=== PATIENT | female | born 1945 | race Caucasian/White ===

== ENCOUNTER 2021-11-13 18:16 | Emergency (ER) | payer MEDICARE, OTHER ==
[~2021-11-13] VITALS: Ht 162.6 cm; Wt 81.7 kg
[2021-11-13 19:11] LABS: ABSOLUTE LYMPHOCYTES 2.1 thou/uL (0.8-5.3); ABSOLUTE MONOCYTES 1.1 thou/uL (0.0-1.2); ABSOLUTE NEUTROPHILS 5.2 thou/uL (1.6-8.1); BASOPHILS 0.3 %; EOSINOPHILS 0.3 %; HEMATOCRIT 39.7 % (37.0-47.0); LYMPHOCYTES 24.9 %; MCH 28.6 pg (26.0-34.0); MCHC 32.8 g/dL (28.0-37.0); MCV 87.4 fL (80.0-100.0); MPV 8.8 fl. (7.2-11.1); NUCLEATED RBCS 0 /100WBC; PLATELET COUNT* 245 thou/uL (150-400); POLYS 61.5 %; RBC 4.54 mil/uL (4.20-5.00); RDW-CV 14.1 % (10.5-14.5); WBC 8.5 thou/uL (4.0-11.0)
[2021-11-13 19:28] LABS: CALCIUM 8.1 mg/dL (8.5-10.1); CREATININE 1.2 mg/dL (0.6-1.3); POTASSIUM 3.1 mmol/L (3.5-5.1)
[2021-11-13 19:32] LABS: ALBUMIN 2.4 g/dL (3.4-5.0); TOTAL BILIRUBIN 0.6 mg/dL (<0.1-1.0); TOTAL PROTEIN 6.3 g/dL (6.4-8.2)
[2021-11-13] MEDS ORDERED: ONDANSETRON ODT4 MG PO (21:36)
[2021-11-13] MEDS ORDERED: AMOXICILLIN 50500 MG PO (21:36)
[2021-11-13] MEDS ORDERED: LOPERAMIDE 2 MG2 M1 PO (21:36)
[2021-11-13 21:45] VITALS: BP 114/47
--- NOTE | 2021-11-14 09:59 | EKG ---
[place] [address] ELECTROCARDIOGRAM REPORT Name: LA NENA REYES Room: [facility]#: [id number] Admission: 11/13/21 Attend Phys: Discharge: 11/13/21 Date of : 41 Date of Service: 11/13/21 1905 Report #: [id number] THIS REPORT FOR: //name// [facility] ED Test Date: 2021-11-13 Test Time: 19:05:53 Pat Name: LA NENA REYES Department: Room: Gender: [employer]: : 1945 Requested By: Paulo Sanabria Order Number: [id number] MD: Colin Patel Measurements Intervals [place] Rate: 60 P: 43 NM: 150 QRS: -11 QRSD: 91 T: 56 QT: 408 QTc: 408 Interpretive Statements Sinus rhythm Low voltage, precordial leads Compared to ECG 10/24/2007 13:46:47 Low QRS voltage now present ST (T wave) deviation no longer present Electronically Signed On 11-14-2021 9:59:26 CONVERTING TECHNICIAN by Colin Patel [email or web address] <ELECTRONICALLY SIGNED> By: Colin Patel MD, FAC 11/14/21 0959 1905 1905 Colin Patel MD, [facility] /EPI
== END 2021-11-13 21:45 | disposition home or self-care (01) ==
LOC: M.ERS 18:16
PROVIDERS: Physician Assistant
DX: U07.1 COVID-19 (principal); J12.82 Pneumonia due to coronavirus disease 2019; R11.2 Nausea with vomiting, unspecified; R19.7 Diarrhea, unspecified; I10 Essential (primary) hypertension; Z90.710 Acquired absence of both cervix and uterus